=== PATIENT | female | born 1965 | race American Indian/Alaskan Native ===

== ENCOUNTER 2016-12-22 06:09 | Emergency (ER) | payer OTHER ==
[2016-12-22 06:28] VITALS: BP 169/114
[2016-12-22 07:51] LABS: Basophils % (Auto) 0.9 % (0.0-1.8); Eosinophils % (Auto) 1.6 % (0.0-4.3); Hematocrit 42.6 % (30.3-42.9); Hemoglobin 14.1 gm/dl (10.1-14.3); Mean Corpuscular HGB Conc 33 % (30-34); Mean Corpuscular Hemoglobin 28 pg (28-32); Mean Corpuscular Volume 85 fl (79-97); Platelet Count 204 K/mm3 (140-440); Red Blood Count 5.01 M/mm3 (3.65-5.03); Red Cell Distribution Width 13.7 % (13.2-15.2); White Blood Count 6.9 K/mm3 (4.5-11.0)
[2016-12-22 08:00] LABS: Anion Gap 17 mmol/L; BUN/Creatinine Ratio 23.33; Blood Urea Nitrogen 21 mg/dL (7-17); Calcium 9.3 mg/dL (8.4-10.2); Carbon Dioxide 29 mmol/L (22-30); Chloride 100.3 mmol/L (98-107); Glucose 100 mg/dL (65-100); Potassium 3.1 mmol/L (3.6-5.0); Sodium 143 mmol/L (137-145)
[2016-12-22] MEDS ORDERED: K-DUR PO ONE (08:17)
[2016-12-22] MEDS ORDERED: ULTRAM PO ONE (08:17)
--- NOTE | 2016-12-22 08:27 | Emergency Department Report ---
ED General Adult HPI - General Chief complaint: Extremity Problem,Nontraumatic Stated complaint: LUMP W/SWELLING COLLARBONE Time Seen by Provider: 12/22/16 07:22 Source: patient, family Mode of arrival: Ambulatory Limitations: No Limitations - History of Present Illness Initial comments: PT c/o L clavicle pain and swelling. PT states she noticed the swelling Sunday night while in the shower. PT states the area is painful/ tender. PT denies injury or trauma. PT states she tried to make an appointment with PCP but they could not see her for over a week. PT states the pain increased to 8/10 last night and she thought she should be evaluated, so she came to the ED. 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 denies: cough, fever/chills, loss of appetite, rash, syncope, weakness Treatments Prior to Arrival: none - Related Data Previous Rx's Medication Instructions Recorded Last Taken Type Acetaminophen/Codeine [Tylenol #3] 1 tab PO Q6H PRN #12 tab 12/22/16 Unknown Rx Allergies Allergy/AdvReac Type Severity Reaction Status Date / Time No Known Allergies Allergy Verified 12/22/16 06:21 ED Review of Systems ROS: Stated complaint: LUMP W/SWELLING COLLARBONE Other details as noted in HPI Comment: All other systems reviewed and negative Constitutional: denies: chills, fever ENT: other (pt states her voice was horse ). denies: ear pain, throat pain, hearing loss, congestion Respiratory: denies: cough, shortness of breath, SOB with exertion, SOB at rest Cardiovascular: denies: dyspnea on exertion, syncope Gastrointestinal: nausea (pt states she felt nausea earlier in the week but was not sure if it was due to the humidity ). denies: vomiting Musculoskeletal: as per HPI Hematological/Lymphatic: denies: swollen glands ED Past Medical Hx - Past Medical History Previous Medical History?: Yes Hx Hypertension: Yes Additional medical history: CHRONIC BACK - Surgical History Past Surgical History?: Yes Hx Cholecystectomy: Yes Additional Surgical History: HYESTERECTOMY - Family History Family history: other (Lupus ) - Social History Smoking Status: Never Smoker Substance Use Type: Alcohol - Medications Home Medications: Home Medications Medication Instructions Recorded Confirmed Last Taken Type Acetaminophen/Codeine [Tylenol #3] 1 tab PO Q6H PRN #12 tab 12/22/16 Unknown Rx ED Physical Exam - General Limitations: No Limitations General appearance: alert, in no apparent distress - Head Head exam: Present: atraumatic, normocephalic, normal inspection - Eye Eye exam: Present: normal appearance, PERRL, EOMI. Absent: conjunctival injection - ENT ENT exam: Present: normal orophraynx, mucous membranes moist, normal external ear exam - Expanded ENT Exam Expanded TM/Canal exam: Cerumen Impaction: Right TM, Left TM Mouth exam: Present: normal external inspection. Absent: drooling, trismus Throat exam: Positive: normal inspection - Neck Neck exam: Present: normal inspection, tenderness (along L supraclavicular ), full ROM. Absent: lymphadenopathy - Respiratory Respiratory exam: Present: normal lung sounds bilaterally. Absent: respiratory distress, wheezes, rales, rhonchi, stridor, chest wall tenderness - Cardiovascular Cardiovascular Exam: Present: regular rate, normal rhythm, normal heart sounds - GI/Abdominal GI/Abdominal exam: Present: soft. Absent: tenderness - Extremities Exam Extremities exam: Present: normal inspection, full ROM - Back Exam Back exam: Present: normal inspection, full ROM - Neurological Exam Neurological exam: Present: alert, oriented X3, normal gait - Psychiatric Psychiatric exam: Present: normal affect, normal mood - Skin Skin exam: Present: warm, dry, intact ED Course Vital Signs 12/22/16 12/22/16 12/22/16 06:21 08:42 09:42 Temperature 98.1 F Pulse Rate 80 Respiratory 18 20 18 Rate Blood Pressure 169/114 O2 Sat by Pulse 95 Oximetry - Reevaluation(s) Reevaluation #1: 12/22/16 09:59 PT aware of lab results and XR. PT states mild decrease in her pain after Ultram. PT's hypokalemia was treated with KDUR. PT encouraged to follow up with PCP with in 1 week for bp recheck. PT given strict return precautions. PT verbalizes understanding. - Pulse Oximetry Interpretation Digit-Finger Initial Pulse Oximetry Readin Actions Taken: none ED Medical Decision Making - Lab Data Result diagrams: 12/22/16 07:42 12/22/16 07:42 Lab Results 12/22/16 12/22/16 12/22/16 Range/Units 07:42 07:42 08:46 WBC 6.9 (4.5-11.0) K/mm3 RBC 5.01 (3.65-5.03) M/mm3 Hgb 14.1 (10.1-14.3) gm/dl Hct 42.6 (30.3-42.9) % MCV 85 (79-97) fl MCH 28 (28-32) pg MCHC 33 (30-34) % RDW 13.7 (13.2-15.2) % Plt Count 204 (140-440) K/mm3 Lymph % (Auto) 27.7 (13.4-35.0) % [place] % (Auto) 8.9 H (0.0-7.3) % Eos % (Auto) 1.6 (0.0-4.3) % Baso % (Auto) 0.9 (0.0-1.8) % Lymph # 1.9 (1.2-5.4) K/mm3 [place] # 0.6 (0.0-0.8) K/mm3 Eos # 0.1 (0.0-0.4) K/mm3 Baso # 0.1 (0.0-0.1) K/mm3 Seg Neutrophils % 60.9 (40.0-70.0) % Seg Neutrophils # 4.2 (1.8-7.7) K/mm3 Sodium 143 (137-145) mmol/L Potassium 3.1 L (3.6-5.0) mmol/L Chloride 100.3 (98-107) mmol/L Carbon Dioxide 29 (22-30) mmol/L Anion Gap 17 mmol/L BUN 21 H (7-17) mg/dL Creatinine 0.9 (0.7-1.2) mg/dL Estimated GFR > 60 ml/min BUN/Creatinine Ratio 23.33 % Glucose 100 (65-100) mg/dL Calcium 9.3 (8.4-10.2) mg/dL Urine Color Yellow (Yellow) Urine Turbidity Clear (Clear) Urine pH 6.0 (5.0-7.0) Ur Specific [place] 1.017 (1.003-1.030) Urine Protein <15 mg/dl (Negative) mg/dL Urine Glucose (UA) Neg (Negative) mg/dL Urine Ketones Neg (Negative) mg/dL Urine Blood Neg (Negative) Urine Nitrite Neg (Negative) Urine Bilirubin Neg (Negative) Urine Urobilinogen < 2.0 (<2.0) mg/dL Ur Leukocyte Esterase Neg (Negative) Urine WBC (Auto) 2.0 (0.0-6.0) /HPF Urine RBC (Auto) 3.0 (0.0-6.0) /HPF U Epithel Cells (Auto) 5.0 (0-13.0) /HPF Urine Bacteria (Auto) 1+ (Negative) /HPF Urine Mucus Few /HPF - Radiology Data Radiology results: report reviewed CXR- Nap - Differential Diagnosis lymphadenopathy, strain Critical Care Time: No Critical care attestation.: If time is entered above; I have spent that time in minutes in the direct care of this critically ill patient, excluding procedure time. ED Disposition Clinical Impression: Collar bone pain, Impacted cerumen of both ears, Hypokalemia Disposition: TO HOME OR SELFCARE Is pt being admited?: No Does the pt Need Aspirin: No Condition: Stable Instructions: Cerumen Impaction (ED), Lymphadenopathy (ED), Hypokalemia (ED), Hypertension (ED) Additional Instructions: No driving or alcohol if you are having to take Tylenol #3 for your pain follow up with PCP next week have your bp rechecked at follow up Continue taking your bp medication Prescriptions: Acetaminophen/Codeine [Tylenol #3] 1 tab PO Q6H PRN #12 tab PRN Reason: Pain , Severe (7-10) Referrals: PRIMARY CARE, [Primary Care Provider] - 3-5 Days JUMA COLON MD [Staff Physician] - 3-[address] [facility] [Outside] - 3-5 Days Forms: Work/School Release Form(ED) Time of Disposition: 10:03
--- NOTE | 2016-12-22 08:34 | XRay Report ---
Chest 2 views: History: Lymphadenopathy, hypertension. Findings: Normal cardiomediastinal silhouette. Trachea is midline. No consolidation, pneumothorax or pleural effusion. Impression: No acute cardiopulmonary findings.
[2016-12-22 09:29] LABS: Bacteria,Urine 1+ /HPF (Negative); Bilirubin,Urine NEG (Negative); Blood,Urine NEG (Negative); Ketones,Urine NEG (Negative); Leukocyte Esterase,Urine NEG (Negative); Mucus,Urine FEW /HPF; Nitrite,Urine NEG (Negative); Protein,Urine <15 mg/dL mg/dL (Negative); Urobilinogen,Urine < 2.0 mg/dL (<2.0)
== END 2016-12-22 10:17 | disposition home or self-care (01) ==
LOC: ED 06:09
DX: M25.512 Pain in left shoulder (principal); H61.23 Impacted cerumen, bilateral; E87.6 Hypokalemia; I10 Essential (primary) hypertension
CPT/HCPCS: 36415; 71020; 80048; 81001; 85025

== ENCOUNTER 2018-09-23 07:57 | Emergency (ER) | payer OTHER ==
[2018-09-23] MEDS ORDERED: DELTASONE PO ONE (10:07)
[2018-09-23] MEDS ORDERED: TORADOL IM ONE (10:07)
--- NOTE | 2018-09-23 10:26 | Emergency Department Report ---
HPI - General Chief Complaint: Back Pain/Injury Time Seen by Provider: 09/23/18 09:28 - HPI HPI: This is a 53-year-old female with a history of chronic back pain who presented today complaining of acute on chronic lower back pain. Patient states that when he gets a little cold she gets flares of her back pain. Patient describes pain to the right lower back symmetrical back. She denies any trauma, falls, injury. She denies dysuria, fever nausea vomiting abdominal pain. ED Past Medical Hx - Past Medical History Previous Medical History?: Yes Hx Hypertension: Yes Additional medical history: CHRONIC BACK - Surgical History Past Surgical History?: Yes Hx Cholecystectomy: Yes Additional Surgical History: HYESTERECTOMY - Social History Smoking Status: Former Smoker Substance Use Type: Marijuana - Medications Home Medications: Home Medications Medication Instructions Recorded Confirmed Last Taken Type Acetaminophen/Codeine [Tylenol #3] 1 tab PO Q6H PRN #12 tab 12/22/16 Unknown Rx Cyclobenzaprine [Flexeril] 10 mg PO QHS PRN #20 tablet 09/23/18 Unknown Rx Naproxen [Naprosyn] 500 mg PO BID #40 tablet 09/23/18 Unknown Rx ED Review of Systems ROS: Stated complaint: BACK PAIN Other details as noted in HPI Comment: All other systems reviewed and negative Physical Exam - Physical Exam Physical Exam: GENERAL: Alert and oriented x3, no apparent distress, Normal Gait, atraumatic. HEAD: Head is normocephalic and a-traumatic. BACK: Full range of motion, no spinal tenderness, Tenderness to palpation of the trapezius muscles and latissimus dorsi muscles of the back EXTREMITIES/MUSCULOSKELETAL: No cyanosis, clubbing, rash, lesions or edema. Full ROM bilaterally. UE/LE Pulses 2+ bilaterally. LE and UE 5+ strength bilaterally, NEUROLOGIC: The patient is cooperative with no focal neurologic deficits. SKIN: Warm and dry, No lesions, No ulceration or induration present. ED Medical Decision Making - Medical Decision Making 53-year-old female presents to ED with acute on chronic lower back pain/muscle sprain ED course: Patient received Toradol and prednisone in ED. Vital signs are normal patient is in no acute distress Discussed with patient follow-up with primary care physician. Discussed the patient and take medications as prescribed. Patient has no neurological deficit. Patient is alert and oriented 3 and understands all instructions given. Discussed drowsiness effect of Flexeril makes her drowsy and not to operate machinery while taking flexeril Critical care attestation.: If time is entered above; I have spent that time in minutes in the direct care of this critically ill patient, excluding procedure time. ED Disposition Clinical Impression: Chronic back pain, Myalgia Disposition: TO HOME OR SELFCARE Is pt being admited?: No Does the pt Need Aspirin: No Condition: Stable Instructions: Musculoskeletal Pain (ED), Trigger Point Pain (ED) Additional Instructions: Make sure to follow up with the primary care physician as discussed. Take all your medications as you've been prescribed. If you have any worsening symptoms or develop new symptoms please return to ED immediately. Prescriptions: Cyclobenzaprine [Flexeril] 10 mg PO QHS PRN #20 tablet PRN Reason: Muscle Spasm Naproxen [Naprosyn] 500 mg PO BID #40 tablet Referrals: JUSTUS SKY MD [Primary Care Provider] - 3-5 Days ENRIQUE ESPANA MD [Staff Physician] - 3-5 Days Forms: Work/School Release Form(ED) Time of Disposition: 10:31
[2018-09-23 11:13] VITALS: BP 154/98
== END 2018-09-23 11:23 | disposition home or self-care (01) ==
LOC: ED 07:57
DX: M54.5 Low back pain (principal); G89.29 Other chronic pain; M79.10 Myalgia, unspecified site; F12.10 Cannabis abuse, uncomplicated; I10 Essential (primary) hypertension; Z90.710 Acquired absence of both cervix and uterus; Z90.49 Acquired absence of other specified parts of digestive tract; Z87.891 Personal history of nicotine dependence
CPT/HCPCS: 96372; 99282; J1885; J7512

== ENCOUNTER 2020-07-20 10:51 | Emergency (ER) | payer OTHER ==
[2020-07-20 11:38] VITALS: BP 162/99
--- NOTE | 2020-07-20 11:44 | Emergency Department Report ---
ED Extremity Problem HPI - General Chief complaint: Extremity Injury, Upper Stated complaint: RT ARM PAINS Time Seen by Provider: 07/20/20 11:38 Source: patient Mode of arrival: Ambulatory Limitations: No Limitations - History of Present Illness Initial comments: 5-year-old female with a past medical history of hypertension presents to the ER today with complaints of right shoulder pain. She states that her shoulder pain started around July 07. She denies any injury or strenuous activity. She states that the pain starts in her shoulder and radiates down to her right upper arm. She states that the pain is worse with movement. She denies any associated swelling, bruising or redness. She states that she did a virtual visit with her doctor yesterday and it was recommended that she come in to rule out a blood clot because of her diagnosis of COVID-19 in July 09. She reports no chest pain, shortness of breath, extremity numbness,, tingling, weakness, or neck pain. MD Complaint: extremity pain -: days(s) - Related Data Previous Rx's Medication Instructions Recorded Last Taken Type Ketorolac [Toradol] 10 mg PO Q6H PRN #20 tablet 07/20/20 Unknown Rx Allergies Allergy/AdvReac Type Severity Reaction Status Date / Time No Known Allergies Allergy Verified 12/22/16 06:21 ED Review of Systems ROS: Stated complaint: RT ARM PAINS Other details as noted in HPI Comment: All other systems reviewed and negative Constitutional: denies: chills, fever Eyes: denies: eye pain, eye discharge, vision change ENT: denies: ear pain, throat pain Respiratory: denies: cough, shortness of breath, wheezing Cardiovascular: as per HPI. denies: chest pain, palpitations, dyspnea on exertion Endocrine: no symptoms reported Gastrointestinal: denies: abdominal pain, nausea, diarrhea Musculoskeletal: arthralgia, myalgia Skin: denies: rash, lesions Neurological: denies: headache, weakness, paresthesias Psychiatric: denies: anxiety, depression Hematological/Lymphatic: denies: easy bleeding, easy bruising ED Past Medical Hx - Past Medical History Previous Medical History?: Yes Hx Hypertension: Yes Additional medical history: CHRONIC BACK - Surgical History Past Surgical History?: Yes Hx Cholecystectomy: Yes Additional Surgical History: HYESTERECTOMY - Social History Smoking Status: Never Smoker Substance Use Type: None - Medications Home Medications: Home Medications Medication Instructions Recorded Confirmed Last Taken Type Ketorolac [Toradol] 10 mg PO Q6H PRN #20 tablet 07/20/20 Unknown Rx ED Physical Exam - General Limitations: No Limitations General appearance: alert, in no apparent distress - Head Head exam: Present: atraumatic, normocephalic - Eye Eye exam: Present: normal appearance, PERRL, EOMI Pupils: Present: normal accommodation - Neck Neck exam: Present: normal inspection, full ROM - Respiratory Respiratory exam: Present: normal lung sounds bilaterally. Absent: respiratory distress - Cardiovascular Cardiovascular Exam: Present: regular rate, normal rhythm, normal heart sounds - Extremities Exam Extremities exam: Present: normal inspection, other (Mild tenderness palpation right proximal humerus. Also mild tenderness palpation right axillary area. Abduction limited to about 90 degrees. Mild pain on internal and external rotation but there is no limitation. No swelling, erythema or bruising). Absent: joint swelling - Neurological Exam Neurological exam: Present: alert, oriented X3, CN II-XII intact, normal gait - Psychiatric Psychiatric exam: Present: normal affect, normal mood - Skin Skin exam: Present: intact ED Course Vital Signs 07/20/20 11:35 Temperature 98.5 F Pulse Rate 91 H Respiratory 18 Rate Blood Pressure 162/99 O2 Sat by Pulse 99 Oximetry ED Medical Decision Making - Radiology Data Radiology results: report reviewed Patient: LYRIC COCHRAN MR#: [id number] : 1965 Acct:[id number] Age/Sex: 55 / F ADM Date: 07/20/20 Loc: ED Attending Dr: Ordering Physician: KIKI HERNANDEZ Date of Service: 07/20/20 Procedure(s): VL venous duplex UE RT Accession Number(s): [id number] cc: KIKI HERNANDEZ Right upper extremity venous Ultrasound HISTORY: UE pain. TECHNIQUE: Grayscale and color imaging performed. COMPARISON: None FINDINGS: No thrombus identified from the level of the right internal jugular vein through the subclavian, axillary, cephalic, brachial, basilic, radial, and ulnar veins. IMPRESSION: Negative for DVT. Signer Name: Dorian Mccord MD Signed: 07/20/2020 2:03 PM Workstation Name: [id number] Transcribed By: WENDY Dictated By: Dorian Mccord MD Electronically Authenticated By: Dorian Mccord MD Signed Date/Time: 07/20/20 1403 DD/ 140 TD/TT: Patient: LYRIC COCHRAN MR#: [id number] : 1965 Acct:[id number] Age/Sex: 55 / F ADM Date: 07/20/20 Loc: ED Attending Dr: Ordering Physician: KIKI HERNANDEZ Date of Service: 07/20/20 Procedure(s): XR shoulder 2+V RT Accession Number(s): [id number] cc: KIKI HERNANDEZ Fluoro Time In Minutes: RIGHT SHOULDER 3 VIEW(S) INDICATION / CLINICAL INFORMATION: Shoulder pain COMPARISON: None available. FINDINGS: BONES / JOINT(S): No acute fracture or subluxation. Small inferior osteophyte at the inferior aspect of the lateral acromion could contribute to some rotator cuff encroachmen t. Mild AC joint degenerative change. SOFT TISSUES: No significant abnormality. ADDITIONAL FINDINGS: None. Signer Name: Enrique Tom MD Signed: 07/20/2020 12:13 PM Workstation Name: [id number] Transcribed By: RH Dictated By: ENRIQUE TOM III Electronically Authenticated By: ENRIQUE TOM III Signed Date/Time: 07/20/20 1213 DD/ 121 TD/TT: Critical care attestation.: If time is entered above; I have spent that time in minutes in the direct care of this critically ill patient, excluding procedure time. ED Disposition Clinical Impression: Shoulder pain, right, DJD of right shoulder Disposition: DC-01 TO HOME OR SELFCARE Is pt being admited?: No Does the pt Need Aspirin: No Condition: Stable Instructions: Arthritis, [id number], Shoulder Pain, Agim-ov-Qcol Additional Instructions: Take the medications as prescribed for pain. I recommend follow up with PCP and or [facility] in 1 week. Return to ED if worse. Prescriptions: Ketorolac [Toradol] 10 mg PO Q6H PRN #20 tablet PRN Reason: Pain Referrals: EMMA LINDSEY MD [Primary Care Provider] - 3-5 Days Time of Disposition: 14:17
--- NOTE | 2020-07-20 12:18 | XRay Report ---
RIGHT SHOULDER 3 VIEW(S) INDICATION / CLINICAL INFORMATION: Shoulder pain COMPARISON: None available. FINDINGS: BONES / JOINT(S): No acute fracture or subluxation. Small inferior osteophyte at the inferior aspect of the lateral acromion could contribute to some rotator cuff encroachment. Mild AC joint degenerativ e change. SOFT TISSUES: No significant abnormality. ADDITIONAL FINDINGS: None. Signer Name: Norris Tom MD Signed: 07/20/2020 12:13 PM Workstation Name: [id number]
--- NOTE | 2020-07-20 14:08 | Vascular Lab Report ---
Right upper extremity venous Ultrasound HISTORY: UE pain. TECHNIQUE: Grayscale and color imaging performed. COMPARISON: None FINDINGS: No thrombus identified from the level of the right internal jugular vein through the subcla vian, axillary, cephalic, brachial, basilic, radial, and ulnar veins. IMPRESSION: Negative for DVT. Signer Name: Dorian Mccord MD Signed: 07/20/2020 2:03 PM Workstation Name: [id number]
== END 2020-07-20 14:27 | disposition home or self-care (01) ==
LOC: ED 10:51
DX: M19.011 Primary osteoarthritis, right shoulder (principal); I10 Essential (primary) hypertension; Z79.899 Other long term (current) drug therapy; Z90.49 Acquired absence of other specified parts of digestive tract; Z90.710 Acquired absence of both cervix and uterus